=== PATIENT | female | born 1950 | race Caucasian/White ===

== ENCOUNTER 2022-08-21 11:26 | Emergency (ER) | payer MEDICARE, BC | END 2022-08-21 12:51 | disposition home or self-care (01) | LOC: BURERS 11:26 | DX: S82.435A Nondisplaced oblique fracture of shaft of left fibula, initial encounter for closed fracture (principal); S00.83XA Contusion of other part of head, initial encounter; S00.31XA Abrasion of nose, initial encounter; E03.9 Hypothyroidism, unspecified; Z79.899 Other long term (current) drug therapy; W17.2XXA Fall into hole, initial encounter ==